=== PATIENT | male | born 1985 | race Caucasian/White ===

== ENCOUNTER 2022-01-18 20:23 | Emergency (ER) | payer OTHER, SELFPAY ==
[2022-01-18 20:24] VITALS: BP 143/87; PULSE 60; RESP 16; TEMP 36.4; O2SAT 100; BMI 20.7
[2022-01-18 21:00] VITALS: BP 118/78; PULSE 59; RESP 14; O2SAT 99
--- NOTE | 2022-01-18 21:23 | ECG_ITS ---
APPROVED REPORT Exam: Resting ECG HR:67 bpm ECG Measurements Heart Rate 67 AXES MA 138 P 69 QRSd 94 QRS 92 QT 401 T 83 QTc 416 Conclusion SINUS RHYTHM BORDERLINE RIGHT AXIS DEVIATION [QRS AXIS > 90] BORDERLINE ECG UNCONFIRMED REPORT Electronically signed by : Marquis Clarke MD 01/21/2022 21:22:17
[2022-01-18 22:00] VITALS: BP 127/71; PULSE 48; O2SAT 97
--- NOTE | 2022-01-18 22:24 | PC.NURSE ---
Dr. Lewis at
--- NOTE | 2022-01-18 22:28 | HMH.EDGENADL ---
Discharge Plan Disposition Chief Complaint: PAIN Prescriptions Prescriptions: No Action No Known Home Medications Referrals Follow up/Referrals: Provider,Referral, [Primary Care Provider] - See instructions Clinical Impressions Clinical Impression: Upper extremity pain Instructions Patient Instructions: DI for Acute Pain -- Adult Discharge ED Provider: Geovany Lewis General Adult HPI General Chief complaint: PAIN Stated complaint: numbness it left side Time Seen by Provider: 01/18/22 22:28 Mode of Arrival: Ambulatory Source of Information: Patient, Parent(s) and Medical Record Limitations: No Limitations Description of Symptoms (Recalled from ER Triage Doc. by RN): Pt c/o left leg pain for a couple months . Pt decribes it as irritation and points to behind his left knee. Pt denies radiating pain. He then mentions left elbow pain that started this week and left eye lid twitching. Pt says he is currently ok but wanted to get it checked out. History of Present Illness HPI narrative: had acute lt elbow pain w/o known injury - hx of premature ht dis in family - Onset (ago): hour(s) Location: upper extremity Severity: moderate Quality: sharp Consistency: now resolved Associated symptoms: denies other symptoms Treatments prior to arrival: none Related Data Home Medications Medication Instructions Recorded Confirmed No Known Home Medications 01/18/22 01/18/22 Allergies Allergy/AdvReac Type Severity Reaction Status Date / Time No Known Allergies Allergy Verified 01/18/22 22:07 PFSH PFSH Social History Smoking Status: Current some day smoker alcohol intake: never current occupational status: employed Travel in the last 8 weeks: None ROS Obtained: Yes All systems reviewed & no additional complaints except as documented Physical Exam General General appearance: alert Head Head exam: normocephalic Eye Eye exam: Present PERRL and EOMI ENT ENT exam: Present mucous membranes moist Neck Neck exam: Present trachea midline Respiratory Respiratory exam: Present normal lung sounds bilaterally; Absent respiratory distress Cardiovascular Cardiovascular exam: Present regular rate; Absent systolic murmur Abdominal Exam Abdominal exam: Present soft Extremities Exam Extremities exam: Present full ROM and other (nl exam lt upper ext ) Neurological Exam Neurological exam: Present alert, oriented X3 and CN II-XII intact Psychiatric Psychiatric exam: Present normal affect Skin Skin exam: Absent rash Medical Decision Making Medical Records Medical records reviewed: Yes I reviewed the patient's medical records. Denis Inquiry Pt receiving controlled substance: No Vital Signs: 01/18/22 20:24 01/18/22 22:00 Temperature 97.6 F Temperature Source Oral Pulse Rate 48 L Pulse Rate [Right Radial] 60 Respiratory Rate 16 Blood Pressure 127/71 Blood Pressure [Right Arm] 143/87 H Blood Pressure Mean [Right Arm] 105 Blood Pressure Source [Right Arm] Automatic Cuff Blood Pressure Position [Right Arm] Sitting 02 Sat by Pulse Oximetry 100 97 Oxygen Delivery Method Room Air Room Air Lab Data Lab results reviewed: Yes I reviewed the patient's lab results. Lab Results 01/18/22 22:33: WBC 6.5, RBC 5.55, Hgb 15.9, Hct 48.5, MCV 87.3, MCH 28.5, MCHC 32.7, RDW 12.7, Plt Count 229, MPV 8.5, Neut % (Auto) 58.8, Lymph % (Auto) 31.0, Lane % (Auto) 6.1, Eos % (Auto) 2.9, Baso % (Auto) 1.3, Neut # (Auto) 3.8, Lymph # (Auto) 2.0, Lane # (Auto) 0.4, Eos # (Auto) 0.2, Baso # (Auto) 0.1 01/18/22 22:33: Sodium 143, Potassium 3.7, Chloride 104, Carbon Dioxide 29, Anion Gap 13.7, BUN 9, Creatinine 0.80, Estimated Creat Clear 115, Estimated GFR 109, Est GFR ( Amer) 132, Glucose 98, Calcium 9.9, Troponin I < 0.01, Triglycerides 105, Cholesterol 187, LDL Cholesterol Direct 94.56 L, VLDL Cholesterol 21, HDL Cholesterol 42, Cholesterol/HDL Ratio 4.5 H 01/18/22 22:33: Total Biliru
--- NOTE | 2022-01-18 22:37 | PC.NURSE ---
Pt labs drawn and sent to lab via [facility]
[2022-01-18 22:42] LABS: Basophils # 0.1 K/mm3 (0-0.2); Basophils % 1.3 % (0.1-2.0); Eosinophils # 0.2 K/mm3 (0.0-0.4); Eosinophils % 2.9 % (0.1-12.0); Hematocrit 48.5 % (42.0-52.0); Hemoglobin 15.9 g/dL (14.1-18.0); Mean Corpuscular HGB Conc 32.7 g/dL (31.8-35.4); Mean Corpuscular Hemoglobin 28.5 pg (27.0-31.2); Mean Corpuscular Volume 87.3 fl (80-94); Mean Platelet Volume 8.5 fl (7.4-10.4); Monocytes # 0.4 K/mm3 (0.1-1.0); Monocytes % 6.1 % (1.7-9.3); Neutrophils # 3.8 K/mm3 (1.8-7.8); Neutrophils % 58.8 % (37.0-80.0); Platelet Count 229 K/mm3 (142-424); Red Blood Count 5.55 M/mm3 (4.60-6.20); Red Cell Distribution Width 12.7 % (11.5-17.5); White Blood Count 6.5 K/mm3 (4.8-10.8)
[2022-01-18 22:49] LABS: Chloride 104 mmol/L (98-107); Sodium 143 mmol/L (136-145)
[2022-01-18 22:50] LABS: Potassium 3.7 mmoL/L (3.5-5.1)
[2022-01-18 22:52] LABS: Anion Gap 13.7 mEq/L (5-15); Blood Urea Nitrogen 9 mg/dl (9-20); Carbon Dioxide 29 mmol/L (22.0-30.0); Cholesterol 187 mg/dl (140-200); Creatinine Clearance Estimated 115 mL/min (50-200); Estimated Glomerular Filt Rate 109 ml/min (>60); GFR (African American) 132 ML/MIN (>60); Triglycerides 105 mg/dl (30-150); VLDL Cholesterol 21 mg/dL (0-40)
[2022-01-18 22:53] LABS: Alanine Aminotransferase 38 U/L (12-78); Albumin Level 4.9 g/dl (3.5-5.0); Alkaline Phosphatase 42 U/L (38-126); Aspartate Amino Transferase 42 U/L (17-59); Bilirubin,Direct 0.1 mg/dl (0.0-0.4); Bilirubin,Indirect 0.6 mg/dL (0.0-0.9); Bilirubin,Total 0.7 mg/dl (0.2-1.3); Bilirubin,Unconjugated 0.5 mg/dL (0.0-1.1); Calcium 9.9 mg/dl (8.4-10.2); Chol/HDL Ratio 4.5 (1-3.5); Glucose 98 mg/dl (74-100); HDL Cholesterol 42 mg/dl (40-60); Total Protein,Serum 7.6 g/dl (6.3-8.2)
[2022-01-18 23:00] VITALS: BP 103/67; PULSE 58; O2SAT 98
[2022-01-18 23:04] LABS: Direct LDL Cholesterol 94.56 mg/dL (100-129)
[2022-01-18 23:07] LABS: Troponin I < 0.01 ng/ml (0.00-0.034)
[2022-01-18 23:34] VITALS: BP 125/79; PULSE 55; RESP 16; TEMP 36.4; O2SAT 99
== END 2022-01-18 23:34 | disposition home or self-care (01) ==
PROVIDERS: Emergency Provider Emergency Medicine
DX: M79.603 Pain in arm, unspecified (principal)
CPT/HCPCS: 80048; 80061; 80076; 84484; 85025; 93005; 99283